=== PATIENT | female | born 1975 | race Hispanic/Latino ===

== ENCOUNTER 2018-08-04 08:37 | Outpatient (CLI) | payer BC | END 2018-08-04 08:38 | disposition home or self-care (01) | LOC: BICMAMMO 08:37 | PROVIDERS: ATTEND Family Medicine | DX: Z12.31 Encounter for screening mammogram for malignant neoplasm of breast (principal) | CPT/HCPCS: 77063; 77067 ==

== ENCOUNTER 2019-07-27 07:34 | Outpatient (CLI) | payer BC ==
--- NOTE | 2019-07-27 08:21 | ULT ---
ULTRASOUND PELVIC TRANSVAGINAL WITH DOPPLER: HISTORY: Abnormal vaginal bleeding. COMPARISON: None. FINDINGS: Real-time, foote scale, color Doppler, and spectral analysis of the pelvis was performed. The uterus measures 6.4 x 3.4 x 4 cm. Adequate vascular flow to both ovaries which have normal sonog raphic appearance. No free fluid in the pelvis. Endometrial thickness is 6 mm. There are a few small junctional zone cysts. The gonadal vessels are distended bilaterally. IMPRESSION: 1. A few small junctional zone cysts with slight heterogeneous anterior myometrium can be seen with adenomyosis. 2. Normal appearance to both ovaries without adnexal mass. 3. Distended gonadal vessels can be seen with pelvic congestive syndrome. POS: CET
== END 2019-07-27 07:35 | disposition home or self-care (01) ==
LOC: BICULT 07:34
PROVIDERS: ATTEND Family Medicine
DX: N93.9 Abnormal uterine and vaginal bleeding, unspecified (principal); N85.8 Other specified noninflammatory disorders of uterus; N83.8 Other noninflammatory disorders of ovary, fallopian tube and broad ligament
CPT/HCPCS: 76856

== ENCOUNTER 2022-01-08 07:59 | Outpatient (CLI) | payer BC | END 2022-01-08 08:00 | disposition home or self-care (01) | LOC: BICRAD 07:59 | PROVIDERS: ATTEND Family Medicine | DX: M25.561 Pain in right knee (principal) ==

== ENCOUNTER 2023-01-05 08:13 | Outpatient (CLI) | payer BC | END 2023-01-05 08:14 | disposition home or self-care (01) | LOC: BICRAD 08:13 | PROVIDERS: ATTEND Family Medicine | DX: M25.561 Pain in right knee (principal) ==